=== PATIENT | female | born 1970 | race African-American/Black ===

== ENCOUNTER → 2016-06-02 | Day surgery (SDC) | payer OTHER ==
--- NOTE | 2016-06-01 18:10 | History & Physical Pre-Op ---
General Information and HPI History of Present Illness: Specimens is a 45-year-old 6 para 3 who presents today with a diagnosis of menorrhagia. She has chronic heavy bleeding and has been treated in the past with Mirena IUD. She has 2 small fibroids noted in the uterus she presents today for a D&C hysteroscopy and NovaSure ablation. 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 EENTM: Reports: no symptoms. Cardiovascular: Reports: no symptoms. Respiratory: Reports: no symptoms. GI: Reports: no symptoms. Genitourinary: Reports: see HPI. Musculoskeletal: Reports: no symptoms. Skin: Reports: no symptoms. Neurological/Psychological: Reports: no symptoms. Hematologic/Endocrine: Reports: no symptoms. Immunologic/Allergic: Reports: no symptoms. All Other Systems: Reviewed and Negative Exam & Diagnostic Data Physical Exam: HEENT: Normocephalic atraumatic Chest: Clear to auscultation bilaterally Cardiovascular: Normal S1-S2. Abdomen: Soft, no mass nontender Pelvic: Deferred to the OR Extremities: No clubbing cyanosis or edema Neurologic: Nonfocal Assessment/Plan Assessment/Plan: Menorrhagia D&C, hysteroscopy, removal of IUD, NovaSure ablation As Ranked By This Provider Problem List: 1. Menorrhagia
[~2016-06-02] VITALS: Ht 160 cm; Wt 102.1 kg
[~2016-06-02] MED LIST: CIPRO 500MG TA500 MG PO; DICLOFENAC SODI75 M2 PO; FLEXERIL10 MG PO; GOOD SENSE IBU200 MG PO; IBU800 MG PO; MASON NATURAL325 MG PO; MOBIC 15MG15 MG PO; NASONEX0.05 MG/Ac NAS; ORPHENADRINE C100 MG PO; PREDNISONE 20MG20 MG PO; TESSALON PERLE100 MG PO; TRAMADOL50 MG PO; VALIUM5 M2 PO; VICODIN5-300 PO; ZITHROMAX TRI-500 MG PO; ZITHROMAX Z-PA250 M1 PO
--- NOTE | 2016-06-02 19:04 | Operative Report ---
See Addendum Operative/Inv Procedure Report Surgery Date: 06/02/16 Name of Procedure: D&C, hysteroscopy, NovaSure ablation, IUD removal. Pre-Operative Diagnosis: Menorrhagia Post-Operative Diagnosis: Same Estimated Blood Loss: less than 50ml Surgeon/Photoengraving Printer: MARILY LOFTON MD Anesthesia: moderate sedation Operative/Procedure Note Note: The patient was brought to the operating room and placed on the OR table in the dorsal supine position. She was given adequate anesthesia and repositioned into modified dorsal lithotomy. She was prepped and draped in usual sterile fashion. A weighted speculum was inserted into the vagina and a single-toothed tenaculum was attached to the anterior lip of the cervix. The cervix was injected with 1% lidocaine with epinephrine, 2-1/2 mL in each quadrant. The strings of the Mirena IUD were noted and visualized and grasped with a clamp and the IUD was removed intact and sent to pathology. An endocervical curettage was performed revealing a small amount of tissue. The uterus was then sounded to 11 cm. The cervix was dilated to accommodate the hysteroscope which was placed into the uterus. Shaggy endometrium was noted throughout the uterus. There were no polyps or fibroids noted. Hysteroscope was removed and the cervix was further dilated. Sharp curettage followed revealing a moderate amount of tissue. At this point NovaSure was placed into the uterus and the fan was opened. The width was 3-1/2 cm. The NovaSure ablation was activated and 125 W of power and lasted for approximately 60 seconds. The end of the procedure the NovaSure was removed intact. Hemostasis was verified and the instruments removed from the vagina. The patient was then awakened and sent to recovery in good condition. All needle, sponge, and instrument counts were correct at the end of the procedure 2.
== END ==
LOC: STS 03:01
DX: N92.0 Excessive and frequent menstruation with regular cycle (principal); Z30.432 Encounter for removal of intrauterine contraceptive device; N72 Inflammatory disease of cervix uteri
CPT/HCPCS: 81025; 88305; J2250

== ENCOUNTER → 2016-06-08 | Day surgery (SDC) | payer OTHER ==
--- NOTE | 2016-06-06 12:53 | History & Physical Pre-Op ---
General Information and HPI History of Present Illness: Anamika is a 45-year-old female with a long-standing and worsening complaint of left heel pain. The patient has undergone an extended course of conservative care, including shoe gear and activity modification, rest, immobilization and courses of NSAIDs. None of this is yielded her any significant relief. The patient presents today for preoperative surgical consultation. 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 Heart sounds rate and rhythm regular. Lower extremity physical exam demonstrates intact pedal pulses bilaterally. Pulses dorsalis pedis and posterior tibial arteries are palpable bilaterally. Vision without any sensory motor deficits. Deep tendon reflexes grossly intact. Patient noted to have significant pain with palpation to the plantar medial aspect of left heel. Negative Tinel sign is noted with percussion the posterior tibial nerve. Ankle range of motion noted to be diminished, especially in dorsiflexion. This is noted to improve with flexion of the knee. Assessment/Plan Assessment/Plan: Gastrocnemius equinus with chronic plantar fasciosis left. A lengthy discussion reviewing both surgical and conservative options was reviewed the patient at bedside and the patient elects to go forward with surgery despite the risks. As Ranked By This Provider Problem List: 1. Plantar fascial fibromatosis Attending MD Review Statement Attending Statement Attending MD Statement: examined this patient
[~2016-06-08] VITALS: Ht 160 cm; Wt 102.1 kg
--- NOTE | 2016-06-08 10:22 | Operative Report ---
Operative/Inv Procedure Report Surgery Date: 06/08/16 Name of Procedure: 1 gastrocnemius recession left 2 plantar fasciotomy left Pre-Operative Diagnosis: 1 chronic plantar fasciitis his left 2 gastrocnemius equinus left Post-Operative Diagnosis: The same Estimated Blood Loss: sekou Surgeon/Rougher Helper: LOUIS MACKEY DPM Anesthesia: moderate sedation, block Operative/Procedure Note Note: After obtaining informed consent the patient was brought to the operating room and placed on the operating table in supine position. The patient isn't securely fastened to the operating table utilizing safety belt. After administration of IV sedation, 10 mL of 0.5% Marcaine plain was infiltrated about the patient's left leg and ankle. Well-padded calf tourniquet was placed about the patient's left upper calf. 600 mg of clindamycin were delivered intravenously times one dose. Left lower extremity was scrubbed prepped and draped in usual aseptic manner. Left lower extremity is elevated to examine to limb, at 1 Tourniquet inflated 250 mmHg. Attention directed distal medial leg where a linear incision was made 2 fingerbreadths distal to the medial have a gastrocnemius muscle. Skin was sized and was deepened subtenons tissues. It was then bluntly deepened down to the medial margin of the gastroc fascia. An interval was developed between the peritenon the gastroc fascia. The sural nerve was identified and protected. A gastrocnemius recession was then performed. Deep tissues reprepped with 4-0 Vicryl and the skin is reprepped for nylon. Attention was then directed the plantar heel where a grid pattern was marked out at half centimeter intervals and portals well-developed with a 60 sterile 62 K wire. The tissue was then ablated with 4 W of radiofrequency energy according to the marked out a grid pattern. Dissection then opened in carried to the medial margin of the plantar fascial which was released. The incision was then closed with 4-0 Vicryl. The incision was dressed with [place] dressings and Coban. The patient was noted to tolerate both procedure and anesthesia well and the patient was transported from the operating room to recovery by sent stable best assess intact all digits left foot.
== END ==
LOC: STS 02:07
DX: M72.2 Plantar fascial fibromatosis (principal); M21.6X2 Other acquired deformities of left foot
CPT/HCPCS: 81025; J1100; J2001; J2250